=== PATIENT | male | born 2000 | race Two or more races ===

== ENCOUNTER 2018-06-23 18:45 | Emergency (ER) | payer BC, OTHER ==
[~2018-06-23] VITALS: Ht 170.2 cm; Wt 70.3 kg
[2018-06-23 19:32] VITALS: BP 152/71
== END 2018-06-23 23:48 | disposition home or self-care (01) ==
LOC: ER 18:50
DX: R06.4 Hyperventilation (principal); F41.0 Panic disorder [episodic paroxysmal anxiety]
CPT/HCPCS: 71045